=== PATIENT | female | born 1950 | race African-American/Black ===

== ENCOUNTER 2017-03-06 08:41 | Day surgery (SDC) | payer MEDICARE, OTHER ==
[~2017-03-06] VITALS: Ht 167.6 cm; Wt 88.5 kg
[~2017-03-06 08:41] MED LIST: ADVAIR DISK1; AZELASTINE0.1 %; BAYER ASPIRIN E81 MG PO; LISINOP/HCTZ1 TA1 PO; PANTOPRAZOLE SO40 MG PO
[2017-03-06 12:13] VITALS: BP 110/66
== END 2017-03-06 12:00 | disposition home or self-care (01) ==
LOC: ENDO 08:41
PROVIDERS: ATTEND Internal Medicine Gastroenterology
PROC: 0DBK8ZX Excision of Ascending Colon, Via Natural or Artificial Opening Endoscopic, Diagnostic (ICD-10-PCS; principal; 2017-03-06)
PROC: 0DBP8ZX Excision of Rectum, Via Natural or Artificial Opening Endoscopic, Diagnostic (ICD-10-PCS; 2017-03-06)
DX: Z12.11 Encounter for screening for malignant neoplasm of colon (principal); K62.1 Rectal polyp; K64.4 Residual hemorrhoidal skin tags; K63.5 Polyp of colon; K57.30 Diverticulosis of large intestine without perforation or abscess without bleeding; K64.8 Other hemorrhoids; I10 Essential (primary) hypertension; Z86.010 Personal history of colon polyps

== ENCOUNTER 2017-07-31 09:00 | Day surgery (SDC) | payer MEDICARE, OTHER ==
[~2017-07-31] VITALS: Ht 167.6 cm; Wt 89.8 kg
[~2017-07-31 09:00] MED LIST changes: +B121000 MCG PO
[2017-07-31 11:54] VITALS: BP 118/57
== END 2017-07-31 12:00 | disposition home or self-care (01) ==
LOC: ENDO 09:00 → ORM 09:30 → ENDO 09:30
PROVIDERS: ATTEND Internal Medicine Gastroenterology
PROC: 0DB48ZX Excision of Esophagogastric Junction, Via Natural or Artificial Opening Endoscopic, Diagnostic (ICD-10-PCS; principal; 2017-07-31)
DX: K21.9 Gastro-esophageal reflux disease without esophagitis (principal); K29.50 Unspecified chronic gastritis without bleeding; K44.9 Diaphragmatic hernia without obstruction or gangrene; I10 Essential (primary) hypertension; Z86.010 Personal history of colon polyps